=== PATIENT | male | born 1995 | race Two or more races ===

== ENCOUNTER 2023-09-22 09:26 | Emergency (ER) | payer MEDICAID, OTHER ==
[~2023-09-22] VITALS: Ht 182.9 cm; Wt 79.0 kg
[2023-09-22 09:30] VITALS: TEMP 98.7; O2SAT 99
[2023-09-22] MEDS: LEVETIRACETAM 1000MG PREMIX 100 ML IV ONE (09:47)
[2023-09-22 10:07] LABS: BASOPHILS % 0.6 % (0.0-2.0); EOSINOPHILS % 4.2 % (0.0-5.0); HEMATOCRIT. 41.3 % (42.0-52.0); HEMOGLOBIN. 13.9 g/dL (14.0-18.0); LYMPHOCYTES % 35.3 % (20.0-50.0); MEAN CORPUSCULAR HEMOGLOBIN 29.8 pg (28.0-32.0); MEAN CORPUSCULAR HGB CONC 33.6 g/dL (31.0-37.0); MEAN CORPUSCULAR VOLUME 88.5 fL (80.0-94.0); MONOCYTES % 6.2 % (2.0-8.0); NEUTROPHILS % 53.7 % (40.0-76.0); PLATELET 228 x1000/uL (130-400); RED BLOOD CELL COUNT 4.66 mill/uL (4.7-6.1); RED CELL DISTRIBUTION WIDTH 13.3 % (11.6-14.6); WHITE BLOOD COUNT 7.3 x1000/uL (4.5-11.0)
[2023-09-22 10:10] LABS: CHLORIDE 108 mEq/L (98-107); POTASSIUM 3.8 mEq/L (3.5-5.1); SODIUM 141 mEq/L (136-145)
[2023-09-22 10:11] LABS: CARBON DIOXIDE 24 mEq/L (21-32)
[2023-09-22 10:12] LABS: CALCIUM 9.1 mg/dL (8.7-10.4)
[2023-09-22 10:16] LABS: CREATININE 0.8 mg/dL (0.6-1.3); GLUCOSE 116 mg/dL (70-105)
[2023-09-22 10:17] LABS: UREA NITROGEN BLOOD 7 mg/dL (9-23)
[2023-09-22 10:18] LABS: ETHANOL BLOOD < 10 mg/dL (<10)
[2023-09-22 13:00] VITALS: BP 122/72; PULSE 74; RESP 16
== END 2023-09-22 13:40 | disposition home or self-care (01) ==
LOC: ER 09:26
DX: R56.9 Unspecified convulsions (principal)
CPT/HCPCS: 80048; 80320; 85025; 36415; 93005; 96365; 99284; J1953; Z7610; G0480

== ENCOUNTER 2023-12-02 08:12 | Emergency (ER) | payer BC ==
[~2023-12-02] VITALS: Ht 180.3 cm; Wt 72.0 kg
[2023-12-02 08:13] VITALS: TEMP 97.9; O2SAT 100
[2023-12-02] MEDS ORDERED: KEPPRA (08:13)
[2023-12-02 08:53] LABS: BASOPHILS % 1.2 % (0.0-2.0); EOSINOPHILS % 4.1 % (0.0-5.0); HEMATOCRIT. 44.3 % (42.0-52.0); HEMOGLOBIN. 14.3 g/dL (14.0-18.0); LYMPHOCYTES % 34.8 % (20.0-50.0); MEAN CORPUSCULAR HGB CONC 32.3 g/dL (31.0-37.0); MEAN CORPUSCULAR VOLUME 89.9 fL (80.0-94.0); MEAN PLATELET VOLUME 9.4 fl (7.4-10.4); MONOCYTES % 6.1 % (2.0-8.0); NEUTROPHILS % 53.8 % (40.0-76.0); PLATELET 212 x1000/uL (130-400); RED BLOOD CELL COUNT 4.93 mill/uL (4.7-6.1); RED CELL DISTRIBUTION WIDTH 13.4 % (11.6-14.6); WHITE BLOOD COUNT 5.1 x1000/uL (4.5-11.0)
[2023-12-02 09:07] LABS: CHLORIDE 109 mEq/L (98-107); POTASSIUM 3.8 mEq/L (3.5-5.1); SODIUM 142 mEq/L (136-145)
[2023-12-02 09:08] LABS: CALCIUM 9.3 mg/dL (8.7-10.4); CARBON DIOXIDE 26 mEq/L (21-32)
[2023-12-02 09:13] LABS: CREATININE 0.8 mg/dL (0.6-1.3); GLUCOSE 83 mg/dL (70-105); UREA NITROGEN BLOOD 14 mg/dL (9-23)
[2023-12-02] MEDS: LEVETIRACETAM 500MG TABLET PO ONE (09:24)
[2023-12-02 09:48] LABS: ETHANOL BLOOD < 10 mg/dL (<10)
[2023-12-02 10:36] VITALS: BP 112/68; PULSE 59; RESP 16; O2SAT 100
[2023-12-02 10:48] LABS: CLARITY URINE CLEAR (CLEAR); COLOR URINE YELLOW (YELLOW); GLUCOSE URINE NEGATIVE (NEGATIVE); KETONES URINE NEGATIVE (NEGATIVE); LEUKOCYTE ESTERASE URINE NEGATIVE (NEGATIVE); NITRITE URINE NEGATIVE (NEGATIVE); OCCULT BLOOD URINE NEGATIVE (NEGATIVE); PROTEIN URINE NEGATIVE (NEGATIVE); SPECIFIC GRAVITY URINE 1.014 (1.005-1.030); UROBILINOGEN URINE 0.2 E.U./dL (0.2-1.0)
[2023-12-02 10:59] LABS: *AMPHETAMINES SCREEN URINE NEGATIVE (NEGATIVE); *BARBITURATES SCREEN URINE NEGATIVE (NEGATIVE); *BENZODIAZEPINES SCREEN URINE NEGATIVE (NEGATIVE); *COCAINE SCREEN URINE NEGATIVE (NEGATIVE); METHADONE URINE SCREEN NEGATIVE (NEGATIVE); OPIATES URINE SCREEN NEGATIVE (NEGATIVE); PHENCYCLIDINE URINE SCREEN NEGATIVE (NEGATIVE)
[2023-12-02 11:00] LABS: CANNABINOID URINE SCREEN PRESUMPTIVE POSITIVE (NEGATIVE); ECSTASY MDMA SCREEN URINE NEGATIVE (NEGATIVE)
== END 2023-12-02 11:15 | disposition home or self-care (01) ==
LOC: ER 08:12
DX: G40.901 Epilepsy, unspecified, not intractable, with status epilepticus (principal); F12.10 Cannabis abuse, uncomplicated
CPT/HCPCS: 36415; 80048; 80305; 80320; 81003; 85025; 99284; G0480